=== PATIENT | female | born 1980 | race Caucasian/White ===

== ENCOUNTER → 2020-09-08 00:25 | Outpatient (CLI) | payer OTHER, SELFPAY ==
[2020-09-08 20:36] LABS: SARS-CoV-2 RNA PCR Negative
== END ==
PROVIDERS: Visit Provider Surgery Plastic and Reconstructive Surgery
DX: Z01.812 Encounter for preprocedural laboratory examination (principal); Z20.822 Contact with and (suspected) exposure to COVID-19
CPT/HCPCS: C9803; U0003; U0005

== ENCOUNTER 2020-09-11 05:56 | Day surgery (SDC) | payer OTHER, SELFPAY ==
[2020-08-31 10:01] VITALS: BMI 26.6
[2020-09-11] VITALS (9 sets, daily range): BP systolic 113–163; BP diastolic 75–99; PULSE 77–95; RESP 14–21; TEMP 36.4; O2SAT 90–100; BMI 34.1
--- NOTE | 2020-09-11 06:44 | WPDHPUPDATE1 ---
History and Physical Update Update Date/Time: 09/11/20 06:44 History and Physical has been reviewed, including an updated exam of the patient. There are NO changes in the patient's condition. Risks, benefits, and alternatives have been discussed and questions answered. Patient agrees to proceed with procedure.
--- NOTE | 2020-09-11 06:53 | WPDANESEPPF ---
Anes - Initial Pre Proc Eval Procedure: Operation Date: 09/11/20 07:00 Proposed Procedures p Bilateral Breast Augmentation Mammoplasty - Newton Corrales MD Date/Time: 09/11/20 06:53 Surgeon: Newton Corrales MD Pre Op Diagnosis: Micromastia Patient Data Age: 39 Gender: F Height: 1.69 m Weight: 97.3 kg Last Vital Signs Temp 36.4 C L 09/11/20 06:18 Pulse 86 09/11/20 06:18 Resp 18 09/11/20 06:18 BP 113/75 09/11/20 06:18 Pulse Ox 100 09/11/20 06:18 Allergies Allergy/AdvReac Type Severity Reaction Status Date / Time No Known Drug Allergies Allergy Unknown none Verified 09/11/20 06:31 Home Medications Medication Instructions Recorded Confirmed Type docusate sodium 100 mg capsule 100 mg PO DAILY #14 cap 08/26/20 09/11/20 Rx ondansetron HCl 4 mg tablet 4 mg PO Q8H #21 tablet 08/26/20 09/11/20 Rx carisoprodol 350 mg tablet 350 mg PO TID PRN #21 tablet 08/27/20 09/11/20 Rx oxycodone-acetaminophen 5 mg-325 1 tablet PO Q6H PRN #15 tablet 08/27/20 09/11/20 Rx mg tablet Patient hx anesthesia problems: none Family hx anesthesia problems: none PMFSH Family History Family History Mother Family history of osteoarthritis Father Family history of heart disease in male family member before age 55 Social History Social History Smoking status: Current every day smoker Alcohol intake: current Substance use type: does not use Living arrangements: with family Gender identity (if verbalized by the patient): Female Spiritual care concerns: No Anes - Eval Final PreProcedure Day of Procedure 09/11/20 06:53 Patient weight: obese Heart: regular rate and rhythm Lungs: decreased breath sounds Airway: Mallampati scale class II Neurological: alert and oriented Last oral intake: >/= 8 hours ASA classification: II Emergent: no Anesthetic plan: proceed Anesthesia type and monitoring: general LMA and standard monitoring Informed Consent: The patient's anesthetic plan and its attendant risks and benefits were discussed with the patient/family/POA. Questions were solicited and answers provided to the satisfaction of the patient/family/POA.
[2020-09-11] MEDS: LACTATED RINGERS 1,000 ML 30 ML IV CONT ×2 (06:55→08:00)
[2020-09-11] MEDS: SCOPOLAMINE 1.5 MG PATCH TRANSDERM (06:55)
[2020-09-11] MEDS: ceFAZolin SODIUM 2 GM/20 ML SW SYRINGE IV PUSH (07:00)
[2020-09-11] MEDS: BUPIVACAINE HCL 0.25% 50 ML VIAL 40 ML INFILTRATE (07:27)
[2020-09-11] MEDS: LIDO 1%/EPINEPHRINE 1:100,000 20 ML VIAL 40 ML INFILTRATE (07:28)
--- NOTE | 2020-09-11 08:00 | P.OP_ITS ---
Procedure Note - Detailed Date of Procedure 09/11/20 Pre-op Diagnosis Micromastia Post-op Diagnosis same Procedure Performed Bilateral Augmentation Mammaplasty Surgeon Newton Corrales MD Anesthesia general Findings Bilateral [place] SoftTouch Implants 800cc Right - REF# [id number] SN [id number] Dual Plane 1 Left - REF# [id number] SN [id number] Dual Plane 2 Description of Procedure She is here today for bilateral breast augmentation. Previously and again today the risks, benefits, alternatives were discussed in extensive detail. I wanted her to be very realistic about the risks involved as well as expectations. We discussed aftercare and what to monitor for. Made sure answered all of her questions to her satisfaction today and consent was obtained. Marked in the preoperative holding area with their verification. The patient was taken to the operating room placed supine on the operating table. Anesthesia was provided by anesthesiology. A surgical time-out was taken. We cleansed the skin and 1% lidocaine and 0.25% Marcaine with epinephrine was used anesthetize as a field block. She was prepped and draped in a standard sterile fashion. Tegaderm nipple Mercado were placed. A 15 blade used to make an incision along the inframammary fold. Dissection was continued at 45 degree angle until the chest wall as identified. I elevated above the pectoralis muscle in a dual plane fashion as above. I incised the pectoralis major along its inferior border and completely released the inferior border leaving the medial border intact. I created a subpectoral pocket in the appropriate dimensions based on our preoperative planning for the implant. I then copiously irrigated with saline solution and verified a strict hemostasis. Next the use a triple antibiotic and Betadine containing solution to irrigate the pocket. I washed my gloves with the triple antibiotic and Betadine solution. We washed the implant immediately upon opening it with this solution and only opened it when we needed it. I used implant funnel and no-touch techni que. The implant was introduced into the pocket using the funnel. Having verified positioning of the implant this was closed using 2-0 Vicryl followed by 3-0 Monocryl in a running subcuticular 4-0 Monocryl followed by tissue glue. Fluffs, Ricky wrap, and surgical bra were placed. Patient was awoke and taken to PACU without difficulty. All instrument sponge counts were correct at the end of the case. Estimated Blood Loss 20 Drains No Packing No Pathology none sent Complications No immediate complications Condition stable Disposition PACU
[2020-09-11] MEDS: fentaNYL CITRATE INJ (*CRX) 100 MCG/2 ML VIAL 25 MCG IV PUSH ×3 (08:20→08:48)
[2020-09-11] MEDS: HYDROmorphone HCL INJ (*CRX) 2 MG/ML VIAL 1 MG IV PUSH (09:03)
[2020-09-11] MEDS: oxyCODONE HCL (*CRX) 5 MG TAB IR PO (09:58)
--- NOTE | 2020-09-11 10:09 | WPDANESPN ---
Anes - Prog Note Post-Op Date/Time: 09/11/20 10:09 Cardiovascular status: normal Respiratory status: normal Airway patency: baseline Mental status: baseline Post-Op hydration status: normal Vital Signs: Last Vital Signs Temp 36.4 C 09/11/20 08:00 Pulse 82 09/11/20 09:28 Resp 14 09/11/20 09:28 BP 147/98 H 09/11/20 09:28 Pulse Ox 99 09/11/20 09:28 Pain Score (VAS): 2 I/O: Intake & Output 09/10/20 09/11/20 09/11/20 23:59 07:59 15:59 Intake Total 500 Balance 500 Post-procedural complaints: none Patient Feedback: Patient satisfied with anesthetic care.
== END 2020-09-11 10:17 | disposition home or self-care (01) ==
PROVIDERS: Visit Provider Surgery Plastic and Reconstructive Surgery
PROC: (CPT 19325; principal; 2020-09-11 07:00)
DX: N64.82 Hypoplasia of breast (principal)
CPT/HCPCS: 19325

== ENCOUNTER 2023-12-12 09:24 | Outpatient (CLI) | payer BC, SELFPAY ==
--- NOTE | ~2023-12-12 | MM_ITS ---
EXAMINATION: MM scrn saulo implant BI w ale HISTORY: Screening mammogram TECHNIQUE: Craniocaudal and mediolateral oblique 3-D tomosynthesis images with implant displacement a nd synthetic 2-D images were generated. Craniocaudal and mediolateral oblique views of the breasts wi thout implant displacement were obtained using full field digital mammography. CAD analysis was submi tted and interpreted. COMPARISON: 06/26/2020 BREAST PARENCHYMAL COMPOSITION: The breasts are heterogeneously dense, which may obscure small masses . FINDINGS: There is no evidence of suspicious mass, calcification, or architectural distortion to sugg est malignancy in either breast. There has been no suspicious interval change. IMPRESSION: No mammographic evidence of malignancy. Recommend routine screening mammography in one year. BI-RADS Category 1: Negative Reviewed, dictated and finalized at [facility].
== END 2023-12-12 09:25 | disposition home or self-care (01) ==
LOC: ANHIMG 09:26
PROVIDERS: PCP Physician Assistant; Visit Provider Obstetrics & Gynecology
DX: Z12.31 Encounter for screening mammogram for malignant neoplasm of breast (principal)
CPT/HCPCS: 77063; 77067

== ENCOUNTER 2024-03-29 10:14 | Emergency (ER) | payer BC, SELFPAY ==
--- NOTE | ~2024-03-29 | CT_ITS ---
EXAMINATION: CT brain wo con DATE: 03/29/2024 11:02 INDICATION: 2 weeks of left frontal headache, nausea, vomiting and blurred vision. TECHNIQUE: Computed tomography (CT) of the head was performed without intravenous contrast. Sagittal and coronal reconstructions were performed. The mA was adjusted according to patient size. Iterative reconstruction technique was employed. The dose-length product was 605.33 mGy-cm. COMPARISON: None FINDINGS: No acute intracranial hemorrhage, acute infarction or abnormal extra axial fluid collection. Ventricl es are normal and symmetric. No mass/mass effect. Mucosal thickening the bilateral ethmoid sinuses. T he orbits, paranasal sinuses and mastoid air cells are normal. IMPRESSION: 1. Normal head CT. Reviewed, dictated and finalized at location A. E BUILDER IMPRESSION: 1. Normal head CT.
--- NOTE | ~2024-03-29 | XR_ITS ---
EXAMINATION: XR chest 1V portable DATE: 03/29/2024 11:02 INDICATION: Headache. Nausea and vomiting. Flu. TECHNIQUE: A single frontal view of the chest was obtained. COMPARISON: None. FINDINGS: There is mild atelectasis in lingula. No pleural effusion or pneumothorax. The heart size i s normal. IMPRESSION: 1. Mild atelectasis in lingula. Reviewed, dictated and finalized at location A. ICENOW ADMINISTRATOR
[2024-03-29 10:16] VITALS: BP 184/112; PULSE 99; RESP 16; TEMP 36.4; O2SAT 98
--- NOTE | 2024-03-29 10:21 | ED.HA ---
HPI - Headache General Chief Complaint: Headache Stated Complaint: headache Time Seen by Provider: 03/29/24 10:21 Source: patient Mode of arrival: ambulatory Limitations: no limitations History of Present Illness HPI Narrative: 43 years old white female, healthy otherwise came to the ED by private car complaining of left frontal headache, aching started 12 days ago. No improvement on anrx-jyd-gowqecg medications, patient reported vomiting once last night and vomiting once today, currently having nausea. Patient report having similar headache 2018 , transferred to [facility] than got discharged on medication, does not remember the name of it and she does not remember the name of the neurologist at that time. 3 days after the beginning of her headache, tested positive for flu. Currently patient denying any fever or chills or coughing or runny nose or sneezing. Related Data Home Medications ?Medication ?Instructions ?Recorded ?Confirmed ?Last Taken ?Type No Home Medications 03/29/24 03/29/24 Unknown History Allergies Allergy/AdvReac Type Severity Reaction Status Date / Time acetaminophen (From Percocet) Allergy Intermediate Hives Verified 03/29/24 12:28 loratadine (From Claritin) Allergy Intermediate Hives Verified 03/29/24 12:28 oxycodone (From Percocet) Allergy Intermediate Hives Verified 03/29/24 12:28 Review of Systems Review of Systems: All systems reviewed & are unremarkable except as noted in HPI and below PMFSH Family History Family History Mother Family history of osteoarthritis Father Family history of heart disease in male family member before age 55 Social History Social History Smoking status: Never smoker Alcohol intake: current Substance use type: does not use Living arrangements: with family Gender identity (if verbalized by the patient): Female Spiritual care concerns: No Exam Narrative: General appearance: Well-developed, well-nourished Skin: Normal color Head: Normocephalic, nontraumatic Eyes: Clear conjunctiva ENT: Oropharynx normal, ears normal, nose normal Neck: Supple, nontender Chest and respiratory: Airway patent, no respiratory distress, no accessory muscle use Heart: Regular rate/rhythm Abdomen: Soft, nontender, no organomegaly, quiet bowel sounds Vascular: Normal peripheral pulses, normal capillary refill. Musculoskeletal: Normal range of motion, nontender back Neurologic: Alert and oriented ?3, STRUCTURAL ENGINEERING DRAFTING OFFICER is normal as tested, no gross motor deficit Course Vital Signs Vital signs: Vital Signs Temperature 36.4 C 03/29/24 10:16 Pulse Rate 99 03/29/24 10:16 Respiratory Rate 16 03/29/24 10:16 Blood Pressure 184/112 H 03/29/24 10:16 Pulse Oximetry 98 03/29/24 10:16 Oxygen Delivery Room Air 03/29/24 10:16 Temperature 36.7 C 03/29/24 12:25 Pulse Rate 78 03/29/24 12:25 Respiratory Rate 18 03/29/24 12:25 Blood Pressure 151/101 H 03/29/24 12:25 Pulse Oximetry 98 03/29/24 12:25 Oxygen Delivery Room Air 03/29/24 12:25 MDM - Headache MDM Narrative Medical decision making narrative: patient came with left frontal headache started 3 days prior to tested positive for flu History of hypertension not on medication for long time. Vital signs showing blood pressure of 184/112 otherwise within normal limit Physical examination showing a restless patient Differential diagnosis include headache secondary to flu infection, uncontrolled hypertension, anxiety / depression, temporalis arthritis, intracranial abnormality, urinary tract infection. Blood workup today includes CBC, CMP, TSH and sed rate showed no acute abnormalities, CT head without contrast showed no acute abnormality Chest x-ray showed no acute abnormality Urinalysis showed evidence of infection Diagnosis headache, uncontrolled hypertension, noncompliance with medications, urinary tract infection, Discharged on Macrobid and losartan /hydrochlorothiazide The pt was discharged to home.the pt,s condition upon discharge was fair,education was provided to the pt in reference to the final impression,discharge study results,treatment,prognosis and need for follow up . Differential Diagnosis Differential diagnosis: Likely other (As above) Medical Records Attestation: I reviewed the patient's medical records. Lab Data Attestation: I reviewed the patient's lab results. 03/29/24 10:34 03/29/24 10:34 Labs: Lab Results 03/29/24 03/29/24 03/29/24 Range/Units 10:22 10:29 10:31 WBC (4.8-10.8) K/mm3 RBC (4.20-5.40) M/mm3 Hgb (12.0-15.0) g/dL Hct (35.0-49.0) % MCV (78.0-102.0) fL MCH (27.0-31.0) pg MCHC (32-36) g/dL RDW (11.6-14.4) % Plt Count (150-420) K/mm3 MPV (9.2-11.8) fl Immature Gran % (Auto) (0.0-0.0) % Neut % (Auto) (50.0-70.0) % Lymph % (Auto) (18.0-42.0) % Titus % (Auto) (2.0-11.0) % Eos % (Auto) (1.0-6.0) % Baso % (Auto) (0.0-1.0) % Lymph # (Auto) (1.10-4.50) K/mm3 Titus # (Auto) (0.10-0.90) K/mm3 Eos # (Auto) (0.02-0.50) K/mm3 Baso # (Auto) (0.00-0.10) K/mm3 Abs Immat Gran (auto) (0.00-0.00) K/mm3 Absolute Neuts (auto) (1.70-7.20) K/mm3 Absolute Nucleated RBC (0.00-0.00) K/mm3 Nucleated RBC % (0-0.0) % ESR (0-15) mm/hr Sodium (136-145) mmol/L Potassium (3.5-5.1) mmol/L Chloride (98-108) mmol/L Carbon Dioxide (21-32) mmol/L Anion Gap (4-12) mmol/L BUN (7-18) mg/dL Creatinine (0.55-1.02) mg/dL Estim Creat Clear Calc ml/min Estimated GFR (59 - ) Glucose (70-99) mg/dL Calculated Osmolality (285-295) mOsm/kg Calcium (8.5-10.1) mg/dL Total Bilirubin (0.00-1.00) mg/dL AST (15-37) U/L ALT (14-59) U/L Alkaline Phosphatase (46-116) U/L Total Protein (6.4-8.2) g/dL Albumin (3.4-5.0) g/dL TSH (0.36-3.74) uIU/mL Urine Color Light yellow (Yellow) Urine Appearance Clear (Clear) Urine pH 6.0 (5.0-8.0) Ur Specific [place] 1.025 H (1.010-1.020) Urine Protein Negative (Negative) Urine Glucose (UA) Negative (Negative) Urine Ketones Negative (Negative) Ur Blood (Man) 1+ H (Negative) Urine Nitrate Negative (Negative) Urine Bilirubin Negative (Negative) Urine Urobilinogen 0.2 (0.2-1.0) mg/dL Leukocyte Esterase Rfl 2+ H (Negative) ERNIE/UL Urine RBC 3-5 H (0-2) /hpf Urine WBC 4-6 H (0-3) /hpf Ur Squamous Epith Cells Few (Few) /hpf Urine Bacteria 1+ H (None) /hpf Urine Test Negative Influenza A (RT-PCR) Negative (Negative) Influenza B (RT-PCR) Negative (Negative) RSV (RT-PCR) Negative (Negative) SARS-CoV-2 RNA (RT-PCR) Negative (Negative) 03/29/24 Range/Units 10:34 WBC 10.3 (4.8-10.8) K/mm3 RBC 4.98 (4.20-5.40) M/mm3 Hgb 15.7 H (12.0-15.0) g/dL Hct 47.1 (35.0-49.0) % MCV 94.6 (78.0-102.0) fL MCH 31.5 H (27.0-31.0) pg MCHC 33.3 (32-36) g/dL RDW 12.1 (11.6-14.4) % Plt Count 273 (150-420) K/mm3 MPV 9.8 (9.2-11.8) fl Immature Gran % (Auto) 0.6 H (0.0-0.0) % Neut % (Auto) 56.4 (50.0-70.0) % Lymph % (Auto) 33.7 (18.0-42.0) % Titus % (Auto) 6.5 (2.0-11.0) % Eos % (Auto) 2.3 (1.0-6.0) % Baso % (Auto) 0.5 (0.0-1.0) % Lymph # (Auto) 3.46 (1.10-4.50) K/mm3 Titus # (Auto) 0.67 (0.10-0.90) K/mm3 Eos # (Auto) 0.24 (0.02-0.50) K/mm3 Baso # (Auto) 0.05 (0.00-0.10) K/mm3 Abs Immat Gran (auto) 0.06 H (0.00-0.00) K/mm3 Absolute Neuts (auto) 5.79 (1.70-7.20) K/mm3 Absolute Nucleated RBC 0.00 (0.00-0.00) K/mm3 Nucleated RBC % 0.0 (0-0.0) % ESR 25 H (0-15) mm/hr Sodium 140 (136-145) mmol/L Potassium 3.8 (3.5-5.1) mmol/L Chloride 104 (98-108) mmol/L Carbon Dioxide 27 (21-32) mmol/L Anion Gap 9 (4-12) mmol/L BUN 10 (7-18) mg/dL Creatinine 0.80 (0.55-1.02) mg/dL Estim Creat Clear Calc 73 ml/min Estimated GFR > 60 (59 - ) Glucose 98 (70-99) mg/dL Calculated Osmolality 289 (285-295) mOsm/kg Calcium 9.0 (8.5-10.1) mg/dL Total Bilirubin 0.3 (0.00-1.00) mg/dL AST < 10 L (15-37) U/L ALT 29 (14-59) U/L Alkaline Phosphatase 91 (46-116) U/L Total Protein 8.2 (6.4-8.2) g/dL Albumin 3.8 (3.4-5.0) g/dL TSH 2.11 (0.36-3.74) uIU/mL Urine Color (Yellow) Urine Appearance (Clear) Urine pH (5.0-8.0) Ur Specific [place] (1.010-1.020) Urine Protein (Negative) Urine Glucose (UA) (Negative) Urine Ketones (Negative) Ur Blood (Man) (Negative) Urine Nitrate (Negative) Urine Bilirubin (Negative) Urine Urobilinogen (0.2-1.0) mg/dL Leukocyte Esterase Rfl (Negative) ERNIE/UL Urine RBC (0-2) /hpf Urine WBC (0-3) /hpf Ur Squamous Epith Cells (Few) /hpf Urine Bacteria (None) /hpf Urine Test Influenza A (RT-PCR) (Negative) Influenza B (RT-PCR) (Negative) RSV (RT-PCR) (Negative) SARS-CoV-2 RNA (RT-PCR) (Negative) Critical Care Time Critical Care Time Critical Care Time: No Discharge Plan Discharge Clinical Impression: Headache, Urinary tract infection, Hypertension Patient Disposition: Home, Self-Care Condition: Improved Instructions: How to Stop Smoking (ED), Urinary Tract Infection in Women (DC), Acute Headache (ED), Hypertension (ED) Additional Instructions: Return if symptoms are worsening , call your family physician for appointment, take Tylenol as as needed for aches and pain, continue home medications. Patient Language: Slovak Prescriptions: New nitrofurantoin monohyd/m-cryst [Macrobid] 100 mg capsule 100 mg PO Q12H 5 Days Qty: 10 0RF Rx Instructions: must administer with a meal/food losartan-hydrochlorothiazide 50-12.5 mg tablet 1 tablet PO DAILY Qty: 30 0RF No Action No Home Medications Follow-up/Referrals: Titi,PETEY Melgar [Primary Care Provider] -
--- OUTSIDE RECORDS SUMMARY | 2024-03-29 10:28 | XMS_ITS | Clinical Summary ---
Author Organization [facility] Address [address] [place] [address] Phone Care Team Providers Care Manager Organizational Name Role Phone Pablo Walls Primary Care Provider [phone] Allergies Active Allergy Reactions Criticality Noted Date Comments Oxycodone-Acetaminophen Hives Medium 08/18/2021 Medications amLODIPine (NORVASC) 5 MG Tablet TAKE 1 TABLET BY MOUTH ONCE DAILY FOR 90 DAYS 07/06/2021 Active Active Problems No known active problems Social History Tobacco Use Types Packs/Day Years Used Date Smoking Tobacco: Every Day Smokeless Tobacco: Never Comments Unknown Sex and Gender Information Value Date Recorded Sex Assigned at Not on file Legal Sex Female 12:07 PM CDT Gender Identity Not on file Sexual Orientation Not on file Last Filed Vital Signs Vital Sign Reading Time Taken Comments Blood Pressure 134/82 08/18/2021 1:11 PM CDT Pulse 90 08/18/2021 1:11 PM CDT Temperature 36.7 C (98.1 F) 08/18/2021 1:11 PM CDT Respiratory Rate 18 08/18/2021 1:11 PM CDT Oxygen Saturation 96% 08/18/2021 1:11 PM CDT Inhaled Oxygen Concentration - - Weight 73.5 kg (162 lb) 08/18/2021 1:11 PM CDT Height 162.6 cm (5' 4 ) 08/18/2021 1:11 PM CDT Body Mass Index 27.81 08/18/2021 1:11 PM CDT Plan of Treatment Health Maintenance Due Date Last Done Comments Hepatitis C Virus (HCV) Screening 1980 TdaP Immunization 1980 Hepatitis B Immunization (1 of 3 - 19+ 3-dose series) 10/12/1998 Pap Smear 10/12/2000 Cervical Cancer Screening (CCS) 10/12/2009 HPV/Cotest 10/12/2009 Discussion re Starting/Frequ ency of Mammograms 2019 Influenza Immunization (#1) 2023 SARS-COV-2 Immunization ( season) 2023 Respiratory Syncytial Virus (RSV) Immunization (Adult) (1 - 1-dose 75+ series) 10/12/2054 Meningococcal Immunization (ACWY) Aged Out No longer eligible based on patient's age to complete this topic Pneumococcal Immunization Combined Aged Out No longer eligible based on patient's age to complete this topic Rotavirus Immunization Aged Out No lo nger eligible based on patient's age to complete this topic Insurance Care Teams Manager Organizational Relationship Specialty Start Date End Date Pablo Walls PAC [address] [place] [address] PCP - General Physician Miller Helper 08/18/21
--- OUTSIDE RECORDS SUMMARY | 2024-03-29 10:28 | XMS_ITS | Referral Summary ---
Author Organization [address] Address [address] [place] [id number] Care Team Providers Care Crewman Main Battle Tank Name Role Phone Pablo Walls Primary Care Provider [phone] Pablo Walls Unavailable [phone] Allergies Active Allergy Reactions Criticality Noted Date Comments Oxycodone-Acetaminophen Medium Medications ibuprofen (ADVIL,MOTRIN) 800 mg tablet Take 1 tablet (800 mg total) by mouth 3 (three) times a day 21 tablet 9 Active lidocaine viscous (XYLOCAINE) 2 % solution Take 5 mL (1 application total) by mouth every 3 (three) hours Apply to a cotton ball then to the affected tooth 100 mL 9 Active acetaminophen (TYLENOL) 500 mg tablet Take 1 tablet (500 mg total) by mouth every 6 (six) hours as needed for pain Take 1 with each dose of tramadol previously prescribed 30 tablet 9 Active Active Problems Problem Noted Date Diagnosed Date Dentalgia 11/17/2018 Dental caries extending into pulp 11/17/2018 Social History Tobacco Use Types Packs/Day Years Used Date Smoking Tobacco: Every Day Cigarettes Personal Safety Answer Date Recorded Getting School Help Needed Not on file 02/13 Comments No Sex and Gender Information Value Date Recorded Sex Assigned at Not on file Legal Sex Female 2:25 AM CAUL DRESSER Gender Identity Not on file Sexual Orientation Not on file Last Filed Vital Signs Vital Sign Reading Time Taken Comments Blood Pressure 181/124 02/09/2022 11:48 PM CAUL DRESSER Pulse 103 02/09/2022 11:48 PM CAUL DRESSER Temperature 36.7 C (98.1 F) 02/09/2022 11:48 PM CAUL DRESSER Respiratory Rate 18 02/09/2022 11:48 PM CAUL DRESSER Oxygen Saturation 99% 02/09/2022 11:48 PM CAUL DRESSER Inhaled Oxygen Concentration - - Weight 78.5 kg (173 lb) 02/09/2022 11:48 PM CAUL DRESSER Height 165.1 cm (5' 5 ) 02/09/2022 11:48 PM CAUL DRESSER Body Mass Index 28.79 02/09/2022 11:48 PM CAUL DRESSER Plan of Treatment Not on file Insurance [facility] [employer] [facility] CHOICE OOS [facility] PLAN [facility] CHOICE OOS Care Teams Crewman Main Battle Tank Relationship Specialty Start Date End Date Pablo Walls PA [address] [place] [address] PCP - General Family Practice 11/19/20 Pablo Walls PA [address] [place] [address] 11/19/20
--- OUTSIDE RECORDS SUMMARY | 2024-03-29 10:28 | XMS_ITS | Clinical Summary ---
Author Organization [address] Address [address] [place] [id number] Care Team Providers Care Automatic Engraver Name Role Phone Pablo Walls Primary Care Provider [phone] Pablo Walls Unavailable [phone] Allergies Active Allergy Reactions Criticality Noted [...] 11/17/2018 Dental caries extending into pulp 11/17/2018 Surgical History Surgery Date Site/Laterality Comments PA TOTAL ABDOMINAL HYSTERECT W/WO RMVL TUBE OVARY Hysterectomy - (Added by TW Conv) PA SLING OPERATION STRESS INCONTINENCE Vaginal Sling Operation For Stress Incontinence - (Added by TW Conv) PA APPENDECTOMY Appendectomy - (Added by TW Conv) Medical History Medical History Date Comments 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 - (Added by TW Conv) Pelvic and perineal pain Pelvic pain - (Added by TW Conv) Family History Medical History Relation Name Comments Heart disease Father Family history of cardiac disorder - (Added by TW Conv) Epilepsy Sister Family history of epilepsy - (Added by TW Conv) Relation Name Status Comments Father Sister Social History Tobacco Use Types Packs/Day Years Used Date Smoking Tobacco: Every Day Cigarettes Personal Safety Answer Date Recorded Getting School Help Needed Not on file 02/13 Comments No Sex and Gender Information Value Date Recorded Sex Assigned at Not on file Legal Sex Female 2:25 AM SENIOR CHEMIST Gender Identity Not on file Sexual Orientation Not on file Obstetrics History Last Filed Vital Signs Vital Sign Reading Time Taken Comments Blood Pressure 181/124 02/09/2022 11:48 PM SENIOR CHEMIST Pulse 103 02/09/2022 11:48 PM SENIOR CHEMIST Temperature 36.7 C (98.1 F) 02/09/2022 11:48 PM SENIOR CHEMIST Respiratory Rate 18 02/09/2022 11:48 PM SENIOR CHEMIST Oxygen Saturation 99% 02/09/2022 11:48 PM SENIOR CHEMIST Inhaled Oxygen Concentration - - Weight 78.5 kg (173 lb) 02/09/2022 11:48 PM SENIOR CHEMIST Height 165.1 cm (5' 5 ) 02/09/2022 11:48 PM SENIOR CHEMIST Body Mass Index 28.79 02/09/2022 11:48 PM SENIOR CHEMIST Plan of Treatment Health Maintenance Due Date Last Done Comments Breast Cancer Screening-Mammogram 1979 Depression Screening 1979 Hepatitis C Screening 1979 Pneumococcal vaccine <65 (1 of 2 - PCV) 10/12/1985 Varicella Vaccines (1 of 2 - 13+ 2-dose series) 10/12/1992 Hepatitis B Screening 10/12/1997 Regular Well Visit/Exam 18-64 10/12/1997 Influenza Vaccine (#1) 2023 DTaP/Tdap/Td Vaccine (2 - Td or Tdap) 09/03/2031 09/02/2021 HPV Vaccines Aged Out No longer eligi ble based on patient's age to complete this topic Insurance BLUE ACC CHOICE OOS [facility] H[facility]/PPO Address: [facility] [address] [place] [address] [facility] O [employer] [facility] HEALTH PLAN BLUE [facility] CHOICE OOS Member Subscriber Plan / Payer (Ef fective 2019-Present) Name:Wilder Smith Relation to Subscriber:Spouse Name:WILDER SMITH Date of :1979 (Home) Address: [facility] [place] [address] Payer ID:[id number] (NAIC) Type:BC ALLIANCE Address: [address] [place] [id number] Care Teams Automatic Engraver Relationship Specialty Start Date End Date Pablo Walls PA [address] [place] [address] PCP - General Family Practice 11/19/20 Pablo Walls PA [address] [place] [address] 11/19/20
[2024-03-29 10:40] LABS: Basophils Absolute Auto 0.05 K/mm3 (0.00-0.10); Basophils Percent Auto 0.5 % (0.0-1.0); Eosinophils Absolute Auto 0.24 K/mm3 (0.02-0.50); Eosinophils Percent Auto 2.3 % (1.0-6.0); Hematocrit 47.1 % (35.0-49.0); Hemoglobin 15.7 g/dL (12.0-15.0); Immature Granulocyte Absolute 0.06 K/mm3 (0.00-0.00); Immature Granulocyte Percent A 0.6 % (0.0-0.0); Lymphocytes Absolute Auto 3.46 K/mm3 (1.10-4.50); Lymphocytes Percent Auto 33.7 % (18.0-42.0); Mean Corpuscular HGB Conc 33.3 g/dL (32-36); Mean Corpuscular Hemoglobin 31.5 pg (27.0-31.0); Mean Corpuscular Volume 94.6 fL (78.0-102.0); Mean Platelet Volume 9.8 fl (9.2-11.8); Monocytes Absolute Auto 0.67 K/mm3 (0.10-0.90); Monocytes Percent Auto 6.5 % (2.0-11.0); Neutrophils Absolute Auto 5.79 K/mm3 (1.70-7.20); Neutrophils Percent Auto 56.4 % (50.0-70.0); Platelet Count Result 273 K/mm3 (150-420); Red Blood Count 4.98 M/mm3 (4.20-5.40); Red Cell Distribution Width 12.1 % (11.6-14.4); White Blood Count 10.3 K/mm3 (4.8-10.8)
[2024-03-29 10:41] LABS: Add Urine Microscopic? YES; Appearance Urine Clear (Clear); Bilirubin Urine Negative (Negative); Blood Urine 1+ (Negative); Color Urine Light Yellow (Yellow); Glucose Urine UA Negative (Negative); Ketones Urine Negative (Negative); Leukocyte Esterase Ur 2+ LEU/UL (Negative); Nitrate Urine Negative (Negative); Protein Urine Negative (Negative); Specific Grav Ur 1.025 (1.010-1.020); Urobilinogen Urine 0.2 mg/dL (0.2-1.0)
[2024-03-29] MEDS: SODIUM CHLORIDE 0.9% IV 1,000 ML 999 ML IV CONT (10:45)
[2024-03-29 10:46] LABS: Pregnancy On Board Control Positive; Urine Pregnancy Test Negative
[2024-03-29] MEDS: ONDANSETRON INJ 4 MG/2 ML VIAL IV PUSH (10:46)
[2024-03-29] MEDS: KETOROLAC 30 MG/ML VIAL (*BKC) IV PUSH (10:46)
[2024-03-29 10:55] LABS: Bacteria Urine 1+ /hpf; Squamous Epithelial Cell Urine Few /hpf (Few)
--- OUTSIDE RECORDS SUMMARY | 2024-03-29 11:01 | XMS_ITS | Referral Summary ---
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 Gender Identity Not on file Sexual Orientation Not on file Last Filed Vital Signs Vital Sign Reading Time Taken Comments Blood Pressure 181/124 02/09/2022 11:48 PM CIGARETTE MAKING MACHINE CATCHER Pulse 103 02/09/2022 11:48 PM CIGARETTE MAKING MACHINE CATCHER Temperature 36.7 C (98.1 F) 02/09/2022 11:48 PM CIGARETTE MAKING MACHINE CATCHER Respiratory Rate 18 02/09/2022 11:48 PM CIGARETTE MAKING MACHINE CATCHER Oxygen Saturation 99% 02/09/2022 11:48 PM CIGARETTE MAKING MACHINE CATCHER Inhaled Oxygen Concentration - - Weight 78.5 kg (173 lb) 02/09/2022 11:48 PM CIGARETTE MAKING MACHINE CATCHER Height 165.1 cm (5' 5 ) 02/09/2022 11:48 PM CIGARETTE MAKING MACHINE CATCHER Body Mass Index 28.79 02/09/2022 11:48 PM CIGARETTE MAKING MACHINE CATCHER Plan of Treatment Not on file Insurance [facility] HMO/PPO Address: [address] [address] [place] [address] [employer] [facility] CHOICE OOS [facility] PLAN [facility] CHOICE OOS Care Teams Yoke Presser Relationship Specialty Start Date End Date Pablo Walls PA [address] [place] [address] PCP - General Family Practice 11/19/20 Pablo Walls PA [address] [place] [address] 11/19/20
--- OUTSIDE RECORDS SUMMARY | 2024-03-29 11:01 | XMS_ITS | Clinical Summary ---
Author Organization [address] Address [address] [place] [phone] Care Team Providers Care Printer Assistant Name Role Phone Pablo Walls Primary Care Provider Pablo Walls Unavailable [phone] Allergies Active Allergy Reactions Criticality Noted [...] 11/17/2018 Surgical History Surgery Date Site/Laterality Comments IN TOTAL ABDOMINAL HYSTERECT W/WO RMVL TUBE OVARY Hysterectomy - (Added by TW Conv) IN SLING OPERATION STRESS INCONTINENCE Vaginal Sling Operation For Stress Incontinence - (Added by TW Conv) IN APPENDECTOMY Appendectomy - (Added by TW Conv) [...] on file 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 Gender Identity Not on file Sexual Orientation Not on file Obstetrics History Last Filed Vital Signs Vital Sign Reading Time Taken Comments Blood Pressure 181/124 02/09/2022 11:48 PM INSIDE [employer]S SALES Pulse 103 02/09/2022 11:48 PM INSIDE [employer] SALES Temperature 36.7 C (98.1 F) 02/09/2022 11:48 PM INSIDE [employer]S SALES Respiratory Rate 18 02/09/2022 11:48 PM INSIDE [employer]S SALES Oxygen Saturation 99% 02/09/2022 11:48 PM INSIDE [employer]S SALES Inhaled Oxygen Concentration - - Weight 78.5 kg (173 lb) 02/09/2022 11:48 PM INSIDE [employer]S SALES Height 165.1 cm (5' 5 ) 02/09/2022 11:48 PM INSIDE [employer] SALES Body Mass Index 28.79 02/09/2022 11:48 PM INSIDE [employer]S SALES Plan of Treatment Health Maintenance Due Date [...] this topic Insurance BLUE ACC CHOICE OOS [facility] O ENT Surgical [facility] HE[facility] PLAN BLUE [facility] CHOICE OOS Member Subscriber Plan / Payer (Ef fective 2019-Present) Name:Wilder Smith Relation to Subscriber:Spouse Name:WILDER SMITH Date of :1979 (Home) Address: [facility] [place] [address] Payer ID:[id number] (NAIC) Type:[employer] Address: [id number] [place] [id number] Care Teams Printer Assistant Relationship Specialty Start Date End Date Pablo Walls PA [address] [place] [address] PCP - General Family Practice 11/19/20 Pablo Walls PA [address] [place] [address] 11/19/20
--- OUTSIDE RECORDS SUMMARY | 2024-03-29 11:01 | XMS_ITS | Clinical Summary ---
Author Organization [facility] Address [address] [place] [address] Phone Care Team Providers Care Firewall Administrator Name Role Phone Pablo Walls Primary Care Provider [phone] Allergies Active Allergy Reactions Criticality Noted Date [...] to complete this topic Insurance Care Teams Firewall Administrator Relationship Specialty Start Date End Date Pablo Walls PAC [address] [place] [address] PCP - General Physician Stone Dresser 08/18/21
[2024-03-29 11:08] LABS: Alanine Aminotransferase 29 U/L (14-59); Albumin Level 3.8 g/dL (3.4-5.0); Alkaline Phosphatase 91 U/L (46-116); Anion Gap 9 mmol/L (4-12); Aspartate Amino Transferase < 10 U/L (15-37); Bilirubin,Total 0.3 mg/dL (0.00-1.00); Blood Urea Nitrogen 10 mg/dL (7-18); Carbon Dioxide 27 mmol/L (21-32); Chloride 104 mmol/L (98-108); Estimated CRCL calculation 73 ml/min; Estimated Glomerular Filt Rate > 60; Glucose 98 mg/dL (70-99); Osmolality Calculated 289 mOsm/kg (285-295); Potassium 3.8 mmol/L (3.5-5.1); Sodium 140 mmol/L (136-145); Thyroid Stimulating Hormone 2.11 uIU/mL (0.36-3.74); Total Protein 8.2 g/dL (6.4-8.2)
--- NOTE | 2024-03-29 11:15 | PC.NURSE ---
covid culture sent to lab
[2024-03-29 11:59] LABS: Erythrocyte Sedimentation Rate 25 mm/hr (0-15)
[2024-03-29 12:02] LABS: SARS-CoV-2 RNA PCR Negative (Negative)
[2024-03-29 12:04] LABS: Influenza A QL RT-PCR Negative (Negative); Influenza B QL RT-PCR Negative (Negative); RSV RNA, RT-PCR Negative (Negative)
[2024-03-29 12:25] VITALS: BP 151/101; PULSE 78; RESP 18; TEMP 36.7; O2SAT 98
--- NOTE | 2024-03-31 12:16 | PC.NURSE ---
Final urine culture report; less than 10,000 single gram positive organism isolated, no further action or treatment needed per Dr. Benjamin.
== END 2024-03-29 13:09 | disposition home or self-care (01) ==
PROVIDERS: Emergency Provider Emergency Medicine; PCP Physician Assistant
DX: N39.0 Urinary tract infection, site not specified (principal); I10 Essential (primary) hypertension; R51.9 Headache, unspecified; Z20.822 Contact with and (suspected) exposure to COVID-19
CPT/HCPCS: 36415; 70450; 71045; 80053; 81001; 81025; 84443; 85025; 85652; 87086; 87637; 96361; 96374; 96375; 99284; J1885; J2405; J7030